=== PATIENT | female | born 1970 | race Caucasian/White ===

== ENCOUNTER 2019-01-05 08:55 | Outpatient (CLI) | payer OTHER ==
--- NOTE | 2019-01-05 10:21 | ULT ---
LEFT BREAST ULTRASOUND: Comparison: Mammogram, 01-05-19, 12-28-16. History: Palpable mass at the 10 o'clock position of the left breast. Technique: Multiplanar grayscale and color doppler images were obtained in a targeted ultrasound of t he left breast. FINDINGS: At the area of palpable abnormality there is a multilobulated cyst measuring 4.1 cm in greatest dimen abby. This demonstrates increased through transmission. An adjacent smaller cyst measuring 0.7 cm in greatest dimension is seen. No suspicious shadowing or solid mass is identified. IMPRESSION: BIRADS category 2 - benign findings. Annual screening mammography is recommended. POS: [facility]
== END 2019-01-05 08:56 | disposition home or self-care (01) ==
LOC: BICMAMMO 08:55
PROVIDERS: ATTEND Family Medicine
DX: N63.22 Unspecified lump in the left breast, upper inner quadrant (principal)
CPT/HCPCS: 77066; G0279

== ENCOUNTER 2023-09-11 07:37 | Outpatient (CLI) | payer BC | END 2023-09-11 07:38 | disposition home or self-care (01) | LOC: ULT 07:37 | PROVIDERS: ATTEND Family Medicine | DX: R10.11 Right upper quadrant pain (principal) | CPT/HCPCS: 76705 ==